=== PATIENT | female | born 1975 | race African-American/Black ===

== ENCOUNTER 2021-07-07 15:54 | Emergency (ER) | payer OTHER ==
[~2021-07-07] VITALS: Ht 162.6 cm; Wt 117.9 kg
[2021-07-07] MEDS ORDERED: FLEXERIL PO (16:34)
[2021-07-07] MEDS ORDERED: HYDROCODON-ACE1 EAC7 PO (16:34)
[2021-07-07] MEDS ORDERED: LIDODERM1 EACH TOP (16:34)
[2021-07-07 16:46] VITALS: BP 141/90
== END 2021-07-07 16:46 | disposition home or self-care (01) ==
LOC: M.ERS 15:54
DX: M54.6 Pain in thoracic spine (principal); Z88.1 Allergy status to other antibiotic agents; Z88.6 Allergy status to analgesic agent; Z90.710 Acquired absence of both cervix and uterus; Z98.84 Bariatric surgery status